=== PATIENT | male | born 1955 | race Caucasian/White ===

== ENCOUNTER 2024-10-18 10:15 | Outpatient (RCR) | payer MEDICARE, OTHER, SELFPAY ==
--- NOTE | 2024-10-12 18:38 | PT.OPEX ---
PT [place] Outpatient Eval PT [facility] Outpatient Eval Start: 10/11/24 09:48 Freq: Status: Active Protocol: Document 10/11/24 09:48 NLR (Rec: 10/12/24 09:05 NLR [id number]) E-signed By Socorro Hamilton DPT Physical Therapy Outpatient Evaluation Insurance Information Recert Due Date 01/09/25 Insurance Name Medicare B Medical Diagnosis M70.71 Bursitis right hip M70.72 Bursitis left hip Treating Diagnosis M25.551 Right hip pain M25.552 Left hip pain Imaging Report Information 09/06/24 Xray: An AP pelvis, AP and cross-table lateral views show no joint space narrowing or osteophytic spurring. No evidence for osteonecrosis, fracture or pathologic lesion. Referring MD Mamadou Frederick MD Subjective Preferred Name SALVADOR Powell is seen today for bilateral hip pain right greater than left. He describes pain on the outside part of his hips worse with walking. He has no trouble standing. He has occasional nighttime symptoms. He has had symptoms for several years . He has not had therapy, surgery or injections. Pain limits his ability to walk longer distances than say going out to his mailbox. Pain Comments R>L lateral hip pain after walking about 200 feet - described as a burning 8/10. No pain in the morning, sometimes wakes up in the night if he lays on his right side. No pain with stairs or sitting. Has tried Ibuprofen, no improvement. He has had this pain about 10 years. He did have L sided sciatica more than 10 years ago. Date of Last Physician Visit 09/06/24 Current Work Status Retired Occupation His is a walker/jogger so she encourages him to walk with her - he would normally walk and/or hike more often without the pain. 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 Precautions Treatment Precautions/Contraindications NO PACEMAKER. DM on metformin , mild HTN. Weight Bearing Status Full Weight Bearing Therapy Limitations/Systems Review Not Limited Objective Other/Pertinent Objective HAND DOM: RIGHT ROM: Hip range of motion is 0- 45 degrees abduction, 0-95 degrees flexion, 10? internal rotation, 50? external rotation all without pain STRENGTH: Grossly WFL except B glute min/med 3+/5, glute max 3+/5 POSTURE: forward rounded shoulders, FHON, R anterior innominate, R LE external rotation, L LE external rotation, L shoulder high, R shoulder retracted. PALPATION: Difficult to elicit tenderness this morning as patient states he is currently not having pain. There is some minimal tenderness at posterior and superior trochanter R>L. No tenderness noted on apex of trochanter today. SPECIAL TESTS: R>L + Figure 4 , - FADDIR B, - LETI B, - Scour B, + Amadou B, + Carleen B FUNCTIONAL: Able to sit indefinitely, but he is very fidgety and moves a lot in the chair (he states not related to hip pain). Able to stand 30-60 minutes in his shop working on projects. Able to walk 5-10 minutes before hip pain commences. GAIT: Symmetrical, no notable antalgia. FLEXIBILITY: Hypoflexibility noted at piriformis, iliopsoas , quadriceps, iliotibial band, hamstrings. FOOTWEAR: Patient arrives wearing Sketchers that does not provide adequate medial arch support. They wear supportive footwear in the house. Functional Test Performed & Score 10/11/24: HOOS-12 Score: 68.7 / 100 = 68.7 % (Pain Score: 62.5; Function Score: 87.5; Quality of Life Score: 56.3) Assessment Assessment/Impression Salvador is a 69-year-old male who presents for skilled PT evaluation presenting with R>L hip pain and burning which is consistent with posterior and superior trochanter tendinitis in the setting of moderate to significant hypoflexibility, right anterior innominate and glute weakness. Patient is an appropriate candidate for skilled physical therapy to target deficits described above. Skilled PT intervention is necessary to achieve goals as stated. D/C plan and criteria is for patient to achieve the goals as outlined or until max rehab potential is met. Patient was agreeable with plan of care and goals established. Primary Functional Limitations Difficulty walking greater than 10 minutes, unable to go on hikes, etc. Plan of Care Rehabilitation Potential Good Rehabilitation Potential Comments Patient is otherwise healthy and motivated to improve in order to return to prior level of function. Physical Therapy Goals 1. Patient will be independent with home exercise program as instructed, modified and progressed by physical therapist in order to be independently and actively participating in their rehabilitation and return to prior level of function. Goal to be achieved by 01/07/2025. 2. Patient will demonstrate ability to walk for 120 minutes(s) without significant increase in pain greater than 2/10 to allow patient to be able to safely and independently return to participation in desired level of function with daily activities such participating in desired recreational activities, walking for exercise without pain or difficulty. Goal to be achieved by 01/07/2025. Coordination/Communication With Referral Source Treatment Plan/Direct Interventions Dry Needling,Manual Therapy, Neuromuscular Re-ed,Self-Care/ Home Management,Therapeutic Activities,Therapeutic Exercises,Ultrasound Frequency/Duration 1X/week for 6-8 weeks Patient Will Be Discharged From Therapy Completion of LTG(s),Skills Plateau,Independent w/HEP, Independently Progressing Discharge Plan Comments DC with HEP Evaluation Billing Untimed Code Treatment Minutes 20 PT Eval No Charge No Complexity Low Certification Information Initial Certification Date 10/11/24 Ending Certification Date 01/09/25 Provider Signature Required Yes Provider Signature Shows Agreement With POC & Medical Necessity Physician NPI Number Write NPI# Here Physician Comment/Change : Physician Signature & Date Requested Please Sign/Date Here
== END 2024-10-18 15:44 | disposition home or self-care (01) ==
PROVIDERS: PCP Family Medicine; Visit Provider Orthopaedic Surgery
DX: M70.71 Other bursitis of hip, right hip (principal); M70.72 Other bursitis of hip, left hip; M25.551 Pain in right hip; M25.552 Pain in left hip; Z51.89 Encounter for other specified aftercare
CPT/HCPCS: 97110; 97161